=== PATIENT | female | born 1960 | race Asian ===

== ENCOUNTER → 2016-11-19 | Outpatient (CLI) | payer OTHER ==
[2016-11-19 17:10] LABS: ALBUMIN 4.5 g/dL (3.4-5.0); BILIRUBIN,DIRECT 0.1 mg/dL (0.00-0.20); BILIRUBIN,TOTAL 0.7 mg/dL (0.1-1.0); CHOL/HDL RATIO 2.4 (3.9-5.7); TOTAL PROTEIN, SERUM 8.2 g/dL (6.4-8.2)
[2016-11-20 11:11] LABS: CARCINOEMBRYONIC AG 6.4 ng/mL (0.0-4.7)
== END | disposition home or self-care (01) ==
LOC: LABPV 14:15
PROVIDERS: ATTEND Internal Medicine Critical Care Medicine
DX: E55.9 Vitamin D deficiency, unspecified (principal); E78.5 Hyperlipidemia, unspecified; K29.70 Gastritis, unspecified, without bleeding; J30.9 Allergic rhinitis, unspecified; Z80.0 Family history of malignant neoplasm of digestive organs
CPT/HCPCS: 82306; 82378; 82785; 86003; 86301; 86304; 86677

== ENCOUNTER → 2018-10-07 | Outpatient (CLI) | payer OTHER | END | disposition home or self-care (01) | LOC: RADPV 14:38 | PROVIDERS: ATTEND Internal Medicine Critical Care Medicine | DX: M85.88 Other specified disorders of bone density and structure, other site (principal) | CPT/HCPCS: 77080 ==

== ENCOUNTER 2020-04-26 12:03 | Emergency (ER) | payer OTHER ==
[~2020-04-26] VITALS: Ht 157.5 cm; Wt 54.5 kg
[2020-04-26 13:14] LABS: BASOPHILS % (AUTO) 0.2 % (0.0-2.0); EOSINOPHILS % (AUTO) 1.6 % (1.0-6.0); HEMATOCRIT 40.8 % (36-46); HEMOGLOBIN 13.7 g/dL (12.0-16.0); LYMPHOCYTES # (AUTO) 1.1 K/uL (1.0-4.8); LYMPHOCYTES % (AUTO) 15.7 % (22.0-44.0); MEAN CORPUSCULAR HEMOGLOBIN 30.2 pg (26.0-34.0); MEAN CORPUSCULAR HGB CONC 33.6 G/dL (31.0-37.0); MEAN CORPUSCULAR VOLUME 90 fL (80-100); MONOCYTES # (AUTO) 0.8 K/uL (0.1-1.0); MONOCYTES % (AUTO) 10.8 % (2.0-9.0); NEUTROPHILS % (AUTO) 71.7 % (40.0-70.0); PLATELET COUNT (AUTO) 285 K/uL (150-450); RED BLOOD CELL COUNT(AUTO) 4.54 MIL/uL (4.00-5.20); RED CELL DISTRIBUTION WIDTH 12.3 % (11.5-14.5)
[2020-04-26 13:22] LABS: ANION GAP 10 mmol/L (8-16); CALCIUM, TOTAL 9.2 mg/dL (8.8-10.5); CARBON DIOXIDE 28 mmol/L (22-29); CHLORIDE 101 mmol/L (98-107); CREATININE 0.78 mg/dL (0.60-1.30); GLOMERULAR FILTR. RATE CALC > 60 mL/min (>60); GLUCOSE,RANDOM 113 mg/dL (70-110); SODIUM SERUM 139 mmol/L (136-145); UREA NITROGEN, BLOOD 19 mg/dL (7-18)
[2020-04-26 14:57] LABS: PROTHROMBIN TIME 10.6 SEC (9.4-11.6)
[2020-04-26 15:00] VITALS: BP 142/85
== END 2020-04-26 15:10 | disposition home or self-care (01) ==
LOC: EMS 12:03
DX: L03.114 Cellulitis of left upper limb (principal); S40.022A Contusion of left upper arm, initial encounter; X58.XXXA Exposure to other specified factors, initial encounter; Y93.89 Activity, other specified; Y92.89 Other specified places as the place of occurrence of the external cause; Y99.8 Other external cause status
CPT/HCPCS: 93971

== ENCOUNTER → 2021-01-17 | Outpatient (CLI) | payer OTHER ==
[2021-01-17 12:19] LABS: BASOPHILS % (AUTO) 0.9 % (0.0-2.0); EOSINOPHILS % (AUTO) 3.6 % (1.0-6.0); HEMATOCRIT 40.5 % (36-46); HEMOGLOBIN 13.3 g/dL (12.0-16.0); LYMPHOCYTES # (AUTO) 2.5 K/uL (1.0-4.8); MEAN CORPUSCULAR HGB CONC 32.9 G/dL (31.0-37.0); MEAN CORPUSCULAR VOLUME 91 fL (80-100); MONOCYTES # (AUTO) 0.4 K/uL (0.1-1.0); MONOCYTES % (AUTO) 7.3 % (2.0-9.0); NEUTROPHILS # (AUTO) 2.6 K/uL (1.8-7.7); NEUTROPHILS % (AUTO) 45.2 % (40.0-70.0); PLATELET COUNT (AUTO) 335 K/uL (150-450); RED BLOOD CELL COUNT(AUTO) 4.43 MIL/uL (4.00-5.20); RED CELL DISTRIBUTION WIDTH 12.6 % (11.5-14.5)
[2021-01-17 12:30] LABS: APPEARANCE,URINE CLEAR (CLEAR); BILIRUBIN,URINE NEGATIVE (NEGATIVE); GLUCOSE, URINE (UA) NEGATIVE (NEGATIVE); KETONES,URINE NEGATIVE (NEGATIVE); LEUKOCYTE ESTERASE ,URINE NEGATIVE (NEGATIVE); NITRATE,URINE NEGATIVE (NEGATIVE); OCCULT BLOOD,URINE SMALL (NEGATIVE); PROTEIN,URINE NEGATIVE (NEGATIVE); UROBILINOGEN,URINE 0.2 mg/dL (<=1.0)
[2021-01-17 12:30] LABS: HEMOGLOBIN A1C 5.5 % (3.8-5.6)
[2021-01-17 12:50] LABS: BACTERIA,URINE None Seen /HPF (None Seen); RBC,URINE 0-2 /HPF (0-2); SQUAMOUS EPITHELIAL CELL,UR Few /LPF (None Seen); WBC,URINE None Seen /HPF (0-5)
[2021-01-17 12:54] LABS: ALANINE AMINOTRANSFERASE 18 U/L (12-78); ALBUMIN 3.9 g/dL (3.4-5.0); ALKALINE PHOSPHATASE 102 U/L (46-116); ANION GAP 8 mmol/L (8-16); ASPARTATE AMINOTRANSFERASE 25 U/L (15-37); BILIRUBIN,TOTAL 0.5 mg/dL (0.1-1.0); CALCIUM, TOTAL 8.9 mg/dL (8.8-10.5); CARBON DIOXIDE 27 mmol/L (22-29); CHLORIDE 106 mmol/L (98-107); CREATININE 0.73 mg/dL (0.60-1.30); FERRITIN 163 ng/mL (8-252); FOLATE SERUM 14.3 ng/mL (5.4-); FREE T4 (FREE THYROXINE) 1.16 ng/dL (0.76-1.46); GLOMERULAR FILTR. RATE CALC > 60 mL/min (>60); GLUCOSE,RANDOM 99 mg/dL (70-110); POTASSIUM 4.1 mmol/L (3.5-5.1); SODIUM SERUM 141 mmol/L (136-145); THYROID STIMULATING HORMONE 1.23 uIU/mL (0.36-3.74); TOTAL PROTEIN, SERUM 7.5 g/dL (6.4-8.2); UREA NITROGEN, BLOOD 13 mg/dL (7-18)
[2021-01-17 19:25] LABS: ERYTHROCYTE SEDIMENTATION RATE 7 MM/HR (0-20)
[2021-01-18 04:06] LABS: H. PYLORI ANTIBODY IGG 0.12 (0.00-0.79)
[2021-01-19 11:07] LABS: QUANTIFERON, TB GOLD PLUS Negative (Negative)
[2021-01-20 19:06] LABS: H. PYLORI ANTIBODY IGA <9.0 units (0.0-8.9)
[2021-01-21 12:06] LABS: H. PYLORI ANTIBODY IGM <9.0 units (0.0-8.9)
== END | disposition home or self-care (01) ==
LOC: LABPV 10:02
PROVIDERS: ATTEND Family Medicine
DX: Z00.00 Encounter for general adult medical examination without abnormal findings (principal); Z20.1 Contact with and (suspected) exposure to tuberculosis; E78.5 Hyperlipidemia, unspecified; E03.9 Hypothyroidism, unspecified
CPT/HCPCS: 80053; 81001; 82306; 82378; 82607; 82728; 82746; 83036; 83735; 84439; 84443; 85025; 85651; 86001; 86301; 86304; 86480; 86677